=== PATIENT | male | born 1945 | race Caucasian/White ===

== ENCOUNTER 2018-04-26 11:42 | Emergency (ER) | payer BC, MEDICARE, OTHER ==
[2018-04-26] MEDS ORDERED: CLONIDINE HCL 0.2 MG TABLET PO ONE (12:07)
--- NOTE | 2018-04-26 12:09 | ER Document Report ---
ED Medical Screen (RME) - General Chief Complaint: Blood Pressure Problem Stated Complaint: BLOOD PRESSURE ISSUE Time Seen by Provider: 04/26/18 12:07 Mode of Arrival: Ambulatory Information source: Patient TRAVEL OUTSIDE OF THE [place] IN LAST 30 DAYS: No - HPI Patient complains to provider of: elevated BP Onset: Just prior to arrival - pt has been running elevated BP's for several days. Went to and sent here for evaluation of same - Related Data Allergies/Adverse Reactions: No Known Allergies Allergy (Verified 04/26/18 11:44) Past Medical History - Social History Chew tobacco use (# tins/day): No Frequency of alcohol use: Social Drug Abuse: None Renal/ Medical History: Denies: Hx Peritoneal Dialysis Physical Exam - Vital signs Vitals: Temp Pulse Resp BP Pulse Ox 97.8 F 88 16 183/98 H 100 04/26/18 11:48 04/26/18 11:48 04/26/18 11:48 04/26/18 11:48 04/26/18 11:48 Course - Vital Signs Vital signs: Temp Pulse Resp BP Pulse Ox 97.8 F 88 16 183/98 H 100 04/26/18 11:48 04/26/18 11:48 04/26/18 11:48 04/26/18 11:48 04/26/18 11:48 Doctor's Discharge - Discharge Referrals: EMILY STEVENSON MD [Primary Care Provider] - Follow up as needed
[2018-04-26 12:38] LABS: AMORPHOUS SEDIMENT,URINE TRACE /HPF; APPEARANCE,URINE CLOUDY; BILIRUBIN,URINE NEGATIVE (NEGATIVE); COLOR,URINE YELLOW; GLUCOSE, URINE NEGATIVE (NEGATIVE); KETONES,URINE NEGATIVE (NEGATIVE); LEUKOCYTE ESTERASE,URINE NEGATIVE (NEGATIVE); NITRITE,URINE NEGATIVE (NEGATIVE); PROTEIN,URINE NEGATIVE (NEGATIVE); UROBILINOGEN,URINE NEGATIVE mg/dL (<2.0)
[2018-04-26 12:46] LABS: ABSOLUTE EOSINOPHILS # (AUTO) 0.1 10^3/uL (0.0-0.6); ABSOLUTE MONOCYTES (AUTO) 0.4 10^3/uL (0.1-1.4); BASOPHILS % (AUTO) 0.4 % (0-2); EOSINOPHILS % (AUTO) 2.7 % (0-6); HEMATOCRIT 47.9 % (37.9-51.0); HEMOGLOBIN 16.9 g/dL (13.5-17.0); LYMPHOCYTES % (AUTO) 27.6 % (13-45); MEAN CORPUSCULAR HEMOGLOBIN 33.3 pg (27.0-33.4); MEAN CORPUSCULAR HGB CONC 35.3 g/dL (32.0-36.0); MEAN CORPUSCULAR VOLUME 94 fl (80-97); MONOCYTES % (AUTO) 11.1 % (3-13); PLATELET COUNT 140 10^3/uL (150-450); RED BLOOD COUNT 5.08 10^6/uL (4.35-5.55); SEGMENTED NEUTROPHILS % (AUTO) 58.2 % (42-78); TOTAL CELLS COUNTED % (AUTO) 100 %; WHITE BLOOD COUNT 3.5 10^3/uL (4.0-10.5)
--- NOTE | 2018-04-26 13:00 | ER Document Report ---
ED General - General Chief Complaint: Blood Pressure Problem Stated Complaint: BLOOD PRESSURE ISSUE Time Seen by Provider: 04/26/18 12:07 Mode of Arrival: Ambulatory TRAVEL OUTSIDE OF THE [place] IN LAST 30 DAYS: No - HPI Notes: Patient is a 73-year-old male with a history of arthritis and hypothyroidism who presents to the emergency department complaining of elevated blood pressure readings when at home today. Patient states that he does have a six-month appointment with his doctor this past week and was told that his blood pressure was in the 150s systolic at that time and to keep an eye on it. Patient states that he had one episode where he stood up and felt mildly lightheaded so he took his blood pressure and noticed his systolic blood pressure was in the 180s. Patient states that since then he has been asymptomatic and did go to an urgent care who referred him to the emergency department because of the elevated blood pressure. Patient states that he has otherwise been eating and drinking without any difficulty. He is urinating normally and having normal bowel movements. He has not noticed any acute changes in his vision or mentation. Patient does admit to smoking cigars and taking NSAIDs. Patient states that he has gained 15 pounds in the last year or so. Patient states that his labs were "all good" at his last visit this past week. Denies any headache, fever, neck pain, changes in vision/speech/mentation/hearing, URI, sore throat, chest pain, palpitations, syncope, cough, shortness of breath, wheeze, dyspnea, abdominal pain, nausea/vomiting/diarrhea, urinary retention, dysuria, hematuria, loss of control of bowel or bladder, numbness/tingling, saddle anesthesia, muscle paralysis/weakness, or rash. - Related Data Allergies/Adverse Reactions: No Known Allergies Allergy (Verified 04/26/18 11:44) Past Medical History - General Information source: Patient - Social History Smoking Status: Current Some Day Smoker Chew tobacco use (# tins/day): No Frequency of alcohol use: Social Drug Abuse: None Family History: Reviewed & Not Pertinent Patient has suicidal ideation: No Patient has homicidal ideation: No Renal/ Medical History: Denies: Hx Peritoneal Dialysis Musculoskeletal Medical History: Reports Hx Arthritis Past Surgical History: Reports: Hx Orthopedic Surgery - L foot Review of Systems - Review of Systems -: Yes All other systems reviewed and negative Physical Exam - Vital signs Vitals: Temp Pulse Resp BP Pulse Ox 97.8 F 88 16 183/98 H 100 04/26/18 11:48 04/26/18 11:48 04/26/18 11:48 04/26/18 11:48 04/26/18 11:48 - Notes Notes: PHYSICAL EXAMINATION: GENERAL: Well-appearing, well-nourished and in no acute distress. A&Ox4. answers questions appropriately. HEAD: Atraumatic, normocephalic. EYES: Pupils equal round and reactive to light, extraocular movements intact, sclera anicteric, conjunctiva are normal. ENT: Nares patent and without discharge. oropharynx clear without exudates. No tonsilar hypertrophy or erythema. Moist mucous membranes. NECK: Normal range of motion, supple without lymphadenopathy LUNGS: Breath sounds clear to auscultation bilaterally and equal. No wheezes rales or rhonchi. HEART: Regular rate and rhythm without murmurs, rubs, gallops. ABDOMEN: Soft, nontender, nondistended abdomen. No guarding, no rebound. No masses appreciated. Normal bowel sounds present. No CVA tenderness bilaterally. Musculoskeletal: FROM to passive/active. Strength 5+/5. No asymmetry to LE's. Extremities: No cyanosis, clubbing, or edema b/l. Peripheral pulses 2+. Capillary refill less than 3 seconds. NEUROLOGICAL: Normal speech, normal gait. Cranial nerves grossly intact. NIH 0. GCS 15. PSYCH: Normal mood, normal affect. SKIN: Warm, Dry, normal turgor, no rashes or lesions noted. Course - Re-evaluation Re-evalutation: 04/26/18 14:26 Patient is an afebrile, well-hydrated 73-year-old male who presents to the ED with asymptomatic hypertension. Vitals are acceptable without any significant tachycardia, tachypnea, or hypoxia. PE is otherwise unremarkable. Patient is nontoxic-appearing and is tolerating p.o. without any difficulties. Patient has been asymptomatic throughout his stay. CBC, CMP, EKG, chest x-ray are all unremarkable for any acute pathology. Patient does not have any headache, and urea, vision changes, chest pain, dyspnea, or shortness of breath. Patient's presentation and symptomatology creates low suspicion for ACS, PE, pneumothorax, pericarditis, dissection, respiratory compromise, severe dehydration, sepsis, meningitis, or other systemic emergent condition at this time. Patient is aware that his condition can change from initial presentation and he needs to monitor symptoms closely and seek medical attention for any acute changes. I will send him home with a low-dose lisinopril as patient is requesting to be placed on blood pressure medication at this time. He has had other high readings at his family doctor's office over the last week+. Recommend conservative measures for symptoms. Recheck with your PCM in 2-3 days. Consider consult with Cardiology. Return to the ED with any worsening/concerning symptoms otherwise as reviewed in discharge. Patient is in agreement. - Vital Signs Vital signs: Temp Pulse Resp BP Pulse Ox 97.8 F 88 16 167/102 H 95 04/26/18 11:48 04/26/18 11:48 04/26/18 11:48 04/26/18 12:53 04/26/18 12:53 - Laboratory Result Diagrams: 04/26/18 12:19 04/26/18 12:19 Laboratory results interpreted by me: 04/26/18 04/26/18 04/26/18 12:19 12:19 12:19 WBC 3.5 L Plt Count 140 L Carbon Dioxide 33 H BUN 21 H AST 62 H ALT 94 H Urine Ascorbic Acid 20 H Discharge - Discharge Clinical Impression: Elevated blood pressure reading Condition: Stable Disposition: HOME, SELF-CARE Additional Instructions: Maintain adequate fluid and food intake Take home medications as directed Low sodium/fat diet Exercise regularly Avoid smoking Monitor blood pressure daily and keep a log Monitor symptoms for any acute changes Recheck with your PCM in 2-3 days Consider a follow-up with cardiology Return to the ED with any worsening symptoms and/or development of fever, headache, chest pain, palpitations, syncope, shortness of breath, trouble breathing, abdominal pain, n/v/d, blood in stool/urine, loss of control of bowel/bladder, urinary retention, muscle weakness/paralysis, numbness/tingling, or other worsening symptoms that are concerning to you. Prescriptions: Lisinopril [Prinivil 10 mg Tablet] 10 mg PO DAILY #7 tablet Forms: Elevated Blood Pressure, Smoking Cessation Education Referrals: JUAN JOSE ALANIZ MD [Primary Care Provider] - Follow up as needed
[2018-04-26 13:02] LABS: ALANINE AMINOTRANSFERASE 94 U/L (21-72); ALBUMIN 4.5 g/dL (3.5-5.0); ALKALINE PHOSPHATASE 91 U/L (38-126); ANION GAP 6 (5-19); ASPARTATE AMINO TRANSFERASE 62 U/L (17-59); BILIRUBIN,DIRECT 0.2 mg/dL (0.0-0.4); BILIRUBIN,TOTAL 0.9 mg/dL (0.2-1.3); BLOOD UREA NITROGEN 21 mg/dL (7-20); CALCIUM 9.5 mg/dL (8.4-10.2); CARBON DIOXIDE 33 mmol/L (22-30); CHLORIDE 101 mmol/L (98-107); GLUCOSE 106 mg/dL (75-110); POTASSIUM 4.5 mmol/L (3.6-5.0); SODIUM 139.5 mmol/L (137-145); TOTAL PROTEIN 7.2 g/dL (6.3-8.2)
--- NOTE | 2018-04-26 13:45 | RADIOLOGY REPORT (SQ) ---
EXAM DESCRIPTION: CHEST SINGLE VIEW COMPLETED DATE/TIME: 04/26/2018 1:33 pm REASON FOR STUDY: near syncope COMPARISON: None. EXAM PARAMETERS: NUMBER OF VIEWS: One view. TECHNIQUE: Single frontal radiographic view of the chest acquired. RADIATION DOSE: NA LIMITATIONS: None. FINDINGS: LUNGS AND PLEURA: No opacities, masses or pneumothorax. No pleural effusion. MEDIASTINUM AND HILAR STRUCTURES: No masses. Contour normal. HEART AND VASCULAR STRUCTURES: Heart normal in size. Normal vasculature. BONES: No acute findings. HARDWARE: None in the chest. OTHER: No other significant finding. IMPRESSION: NO ACUTE RADIOGRAPHIC FINDING IN THE CHEST. TECHNICAL DOCUMENTATION: JOB ID: [id number] [employer] All Rights Reserved Reading location - IP/workstation name: [email or web address]
[2018-04-26 14:35] VITALS: BP 144/94
--- NOTE | 2018-04-26 16:48 | EKG REPORT ---
SEVERITY:- OTHERWISE NORMAL ECG - SINUS RHYTHM BORDERLINE LEFT AXIS DEVIATION : Confirmed by: Rufus Babcock MD 26-Apr-2018 16:48:10
== END 2018-04-26 14:42 | disposition home or self-care (01) ==
LOC: ER 11:42
DX: R03.0 Elevated blood-pressure reading, without diagnosis of hypertension (principal); R42 Dizziness and giddiness; F17.290 Nicotine dependence, other tobacco product, uncomplicated; M19.90 Unspecified osteoarthritis, unspecified site; Z79.1 Long term (current) use of non-steroidal anti-inflammatories (NSAID)
CPT/HCPCS: 93005; 99284; 36415; 85025; 80053; 81001; 71045; 93010; A9270

== ENCOUNTER 2019-05-03 05:33 | Day surgery (SDC) | payer MEDICARE, OTHER ==
[~2019-05-03 05:33] MED LIST: BUPIVACAINE INJ/PF LIPOSOME/PF 266 MG/20 ML SDV INJ PRN; CEFAZOLIN INJ 1 GM VIAL IV PRN; CEFAZOLIN INJ 1 GM VIAL ONE; IBUPROFEN 800 MG in NORMAL SALINE 250 ML IV PRN; LACTATED RINGERS 1000 ML IV PRN; OXYCODONE HCL SR 10 MG TABLET PO ONE; OXYCODONE HCL SR 10 MG TABLET PO PRN; PANTOPRAZOLE SODIUM 20 MG TABLET.DR PO ONE; PANTOPRAZOLE SODIUM 20 MG TABLET.DR PO PRN; VANCOMYCIN HCL 1,000 MG in DEXTROSE 5%-WATER 250 ML IV PRN
[2019-05-03] MEDS ORDERED: MIDAZOLAM 2 MG/2 ML INJ ONE (06:23)
[2019-05-03] MEDS ORDERED: FENTANYL CITRATE INJ/PF 100 MCG/2 ML AMPUL ONE (06:23)
[2019-05-03] MEDS ORDERED: DEXAMETHASONE SOD PHOSPHATE INJ 4 MG/1 ML VIAL ONE (06:24)
[2019-05-03] MEDS ORDERED: PROPOFOL INJ 200 MG/20 ML VIAL IV ONE ×2 (06:24→09:18)
[2019-05-03] MEDS ORDERED: ONDANSETRON HCL INJ/PF 4 MG/2 ML SDV ONE (06:24)
[2019-05-03] MEDS ORDERED: LIDOCAINE 0.5% INJ-PF (5 MG/ML) 50 ML SDV ONE (06:27)
[2019-05-03] MEDS ORDERED: TRANEXAMIC ACID INJ/PF 1,000 MG/10 ML SDV ONE ×2 (07:02→09:33)
[2019-05-03] MEDS ORDERED: BUPIVACAINE INJ/PF LIPOSOME/PF 266 MG/20 ML SDV ONE (07:11)
[2019-05-03] MEDS ORDERED: ONDANSETRON HCL INJ/PF 4 MG/2 ML SDV IV PRN ×2 (08:03→08:40)
[2019-05-03] MEDS ORDERED: MORPHINE SULFATE 10 MG/ML INJ IV PRN (08:03)
[2019-05-03] MEDS ORDERED: DIPHENHYDRAMINE HCL 50 MG/ML VIAL IV PRN ×2 (08:03→08:40)
[2019-05-03] MEDS ORDERED: PROMETHAZINE HCL INJ 25 MG/1 ML VIAL IV PRN ×2 (08:03)
[2019-05-03] MEDS ORDERED: FENTANYL CITRATE INJ/PF 100 MCG/2 ML AMPUL IV PRN ×3 (08:03)
[2019-05-03] MEDS ORDERED: MEPERIDINE HCL/PF INJ 25 MG/1 ML DISP.SYRIN IV PRN (08:03)
[2019-05-03] MEDS ORDERED: BUPIVACAINE INJ/PF LIPOSOME/PF 266 MG/20 ML SDV INJ ONE (08:10)
--- NOTE | 2019-05-03 08:39 | Operative Report ---
Operative Report DATE OF SURGERY: 05/03/19 PREOPERATIVE DIAGNOSIS: Left knee arthritis OPERATION: Left knee arthroplasty SURGEON: OLAMIDE BLAKE ANESTHESIA: Spinal TISSUE REMOVED OR ALTERED: Bone to pathology ESTIMATED BLOOD LOSS: 75 PROCEDURE: Implants used: Femur: Cindy triathlon size 7 CR cemented femur Tibia: 6 tibia Tibial liner: 11 mm CS insert Patella: 40 mm oval patella Procedure with the patient supine on the operating table the left the limb is prepped and draped in a sterile fashion. The limb was elevated for exsanguination and the tourniquet inflated to 280 torr. A standard midline median parapatellar approach the knee is taken. Access is gained to the femoral canal through the intercondylar notch. Intramedullary alignment instrumentation used to resect 10 mm of distal femur in 5 of valgus. Sizing guide indicated a size 7 femur. Appropriate cutting jig is then used to fashion anterior posterior and chamfer cuts. A trial reduction femurs performed and this is judged to be adequate. Attention was next turned to the tibia. Using an extra medullary alignment system 9 millimeters was resected off the lateral tibial plateau. This is sized to a size next tibia. A trial reduction was now performed with a Alex femur and a next tibia using a 9 millimeters spacer. It is full extension and central patellofemoral tracking. The articular surface the patella was next resected using an oscillating saw. All trial implants were removed. Polymethylmethacrylate is mixed and used to cement the above implants in place. On adequate curing the cement excess cement was removed the tourniquet was deflated hemostasis obtained the wound is then closed in layers using interrupted Vicryl followed by mary. A sterile compressive dressing was applied and the patient returned to recovery room in satisfactory condition.
[2019-05-03] MEDS ORDERED: RINGERS SOLUTION,LACTATED 1,000 ML IV PRN (08:40)
[2019-05-03] MEDS ORDERED: MAG HYDROX/AL HYDROX/SIMETH SUSP 30 ML UDCUP PO PRN (08:40)
[2019-05-03] MEDS ORDERED: OXYCODONE HCL IR 5 MG TABLET PO PRN (08:40)
[2019-05-03] MEDS ORDERED: ACETAMINOPHEN 325 MG TABLET PO PRN (08:40)
[2019-05-03] MEDS ORDERED: ZOLPIDEM TARTRATE 5 MG TABLET PO PRN (08:40)
--- NOTE | 2019-05-03 09:55 | RADIOLOGY REPORT (SQ) ---
EXAM DESCRIPTION: KNEE LEFT 2 VIEWS COMPLETED DATE/TIME: 05/03/2019 9:39 am REASON FOR STUDY: Post OP -Long Cassette in PACU M17.12 UNILATERAL PRIMARY OSTEOARTHRITIS, LEFT KNE E D50.0 IRON DEFICIENCY ANEMIA SECONDARY TO BLOOD LOSS (CHRONI COMPARISON: None. NUMBER OF VIEWS: Two views. TECHNIQUE: AP and lateral views of the left knee were obtained. LIMITATIONS: None. FINDINGS: MINERALIZATION: Normal. BONES: Status post TKA. The hardware is in anatomic alignment. There is no periprosthetic fracture. The intra-articular and subcutaneous emphysema are expected in the immediate postoperative period. JOINT: As above. SOFT TISSUES: As above. OTHER: Surgical mary anterior to the joint. IMPRESSION: Uncomplicated TKA hardware with expected immediate postoperative findings. TECHNICAL DOCUMENTATION: JOB ID: [id number] [employer]- All Rights Reserved Reading location - IP/workstation name: [email or web address]
[2019-05-03] MEDS ORDERED: LEVOTHYROXINE SODIUM 0.075 MG TABLET PO SCH (10:00)
[2019-05-03] MEDS ORDERED: TRANEXAMIC ACID INJ/PF 1,000 MG/10 ML SDV IV ONE (10:00)
[2019-05-03] MEDS: SENNOSIDES/DOCUSATE 8.6-50 MG 1 EACH TABLET PO SCH ×2 (10:47→18:05)
[2019-05-03] MEDS: LISINOPRIL 10 MG TABLET PO SCH (10:47)
[2019-05-03] MEDS: PRENATAL VITAMIN W DHA CAPSULE PO SCH (10:47)
[2019-05-03] MEDS: ONDANSETRON 4 MG TAB.RAPDIS PO PRN ×2 (15:31→21:31)
[2019-05-03] MEDS: OXYCODONE HCL SR 10 MG TABLET PO SCH (18:05)
[2019-05-03] MEDS: IBUPROFEN 800 MG in NORMAL SALINE 250 ML IV SCH (18:06)
[2019-05-03] MEDS ORDERED: VANCOMYCIN HCL 1,000 MG in DEXTROSE 5%-WATER 250 ML IV ONE (20:40)
[2019-05-04] MEDS: IBUPROFEN 800 MG in NORMAL SALINE 250 ML IV SCH ×2 (04:09→09:46)
[2019-05-04] MEDS: OXYCODONE HCL SR 10 MG TABLET PO SCH (05:18)
[2019-05-04 05:30] LABS: HEMOGLOBIN 14.3 g/dL (13.5-17.0); MEAN CORPUSCULAR HEMOGLOBIN 32.8 pg (27.0-33.4); MEAN CORPUSCULAR HGB CONC 34.8 g/dL (32.0-36.0); MEAN CORPUSCULAR VOLUME 94 fl (80-97); PLATELET COUNT 122 10^3/uL (150-450); RED BLOOD COUNT 4.36 10^6/uL (4.35-5.55); RED CELL DISTRIBUTION WIDTH 12.1 % (11.5-14.0); WHITE BLOOD COUNT 9.9 10^3/uL (4.0-10.5)
[2019-05-04] MEDS ORDERED: LEVOTHYROXINE SODIUM 0.075 MG TABLET PO SCH (06:00)
[2019-05-04] MEDS ORDERED: PANTOPRAZOLE SODIUM 40 MG TABLET.DR PO SCH (06:00)
[2019-05-04 06:09] LABS: ANION GAP 7 (5-19); BLOOD UREA NITROGEN 20 mg/dL (7-20); CARBON DIOXIDE 30 mmol/L (22-30); CHLORIDE 101 mmol/L (98-107); GLUCOSE 105 mg/dL (75-110); POTASSIUM 4.9 mmol/L (3.6-5.0)
--- NOTE | 2019-05-04 06:58 | PDOC DISCHARGE SUMMARY ---
Impression - Admit/DC Date/PCP Admission Date/Primary Care Provider: JUAN JOSE ALANIZ MD Discharge Date: 05/04/19 - Additional Information Resuscitation Status: Full Code Discharge Diet: Regular Discharge Activity: Balance Activity w/Rest, No tub bath Referrals: OLAMIDE BLAKE MD [ACTIVE STAFF] - 05/18/19 9:15 am Home Medications: Ascorbic Acid [Vitamin C 500 mg Tablet] 500 mg PO DAILY 04/27/19 Celecoxib [Celebrex] 200 mg PO BID 04/27/19 Cholecalciferol (Vitamin D3) [Vitamin D3] 25 mcg PO DAILY 04/27/19 Folic Acid 1 mg PO DAILY 04/27/19 Levothyroxine Sodium [Synthroid 0.075 mg Tablet] 75 mcg PO DAILY 04/27/19 Lisinopril [Prinivil 10 mg Tablet] 20 mg PO DAILY 04/27/19 Methotrexate [Xatmep] 2.5 mg IM Q7D 04/27/19 Multivitamin [Multiple Vitamins] 1 tab PO DAILY 04/27/19 History of Present Illiness History of Present Illness: KALLIE LEE is a 74 year old male The patient is a 74-year-old white male with progressive left knee pain and functional disability second osteoarthritis. Patient is admitted for elective left knee arthroplasty. Hospital Course Hospital Course: Patient is admitted through the operating where he undergoes uncomplicated left knee arthroplasty. Is returned to the floor in satisfactory vision. He seen by physical therapy on the day of surgery and has a vagal vasal reaction which limits his participation with physical therapy. He has an uneventful night. The relying compressive dressing was removed on the first postoperative morning. Underlying OpSite is clean dry and intact. There is minimal pedal edema. Distal neurovascular examination is intact. Physical Exam Vital Signs: Temp Pulse Resp BP Pulse Ox 36.8 C 103 H 19 138/70 H 95 05/04/19 00:00 05/04/19 00:00 05/04/19 00:00 05/04/19 00:00 05/04/19 00:00 Intake & Output 05/02/19 05/03/19 05/04/19 06:59 06:59 06:59 Intake Total 0 2472 Output Total 1950 Balance 0 522 Weight 106.4 kg General appearance: PRESENT: no acute distress Head exam: PRESENT: normocephalic Respiratory exam: PRESENT: unlabored Cardiovascular exam: PRESENT: RRR Pulses: PRESENT: +1 pedal pulses bilateral Vascular exam: PRESENT: normal capillary refill GI/Abdominal exam: PRESENT: soft Rectal exam: PRESENT: deferred Musculoskeletal exam: PRESENT: other - Left lower extremity OpSite dressing clean dry and intact. Minimal pedal edema. Distal neurovascular examination is intact. Neurological exam: PRESENT: alert, awake, oriented to person, oriented to place, oriented to time, oriented to situation. ABSENT: motor sensory deficit Psychiatric exam: PRESENT: appropriate affect, normal mood. ABSENT: homicidal ideation, suicidal ideation Skin exam: PRESENT: dry, intact, warm. ABSENT: cyanosis, rash Results Laboratory Results: WBC 9.9 10^3/uL (4.0-10.5) 05/04/19 05:11 RBC 4.36 10^6/uL (4.35-5.55) 05/04/19 05:11 Hgb 14.3 g/dL (13.5-17.0) 05/04/19 05:11 Hct 41.0 % (37.9-51.0) 05/04/19 05:11 MCV 94 fl (80-97) 05/04/19 05:11 MCH 32.8 pg (27.0-33.4) 05/04/19 05:11 MCHC 34.8 g/dL (32.0-36.0) 05/04/19 05:11 RDW 12.1 % (11.5-14.0) 05/04/19 05:11 Plt Count 122 10^3/uL (150-450) L 05/04/19 05:11 Sodium 138.1 mmol/L (137-145) 05/04/19 05:11 Potassium 4.9 mmol/L (3.6-5.0) 05/04/19 05:11 Chloride 101 mmol/L (98-107) 05/04/19 05:11 Carbon Dioxide 30 mmol/L (22-30) 05/04/19 05:11 Anion Gap 7 (5-19) 05/04/19 05:11 BUN 20 mg/dL (7-20) 05/04/19 05:11 Creatinine 0.94 mg/dL (0.52-1.25) 05/04/19 05:11 Est GFR ( Amer) > 60 (>60) 05/04/19 05:11 Est GFR (MDRD) Non-Af > 60 (>60) 05/04/19 05:11 Glucose 105 mg/dL (75-110) 05/04/19 05:11 Calcium 9.0 mg/dL (8.4-10.2) 05/04/19 05:11 Impressions: Knee X-Ray 05/03/19 08:41 IMPRESSION: Uncomplicated TKA hardware with expected immediate postoperative findings. Plan Plan of Treatment: Patient to be discharged home on a weightbearing as tolerated basis. Social work to provide home health services and DME. Follow-up with Dr. Blake and [facility] for surgery in 2 weeks for staple removal. Stroke Is this a Stroke Patient?: No Stroke Pt being discharged on Anti-thrombolytic therapy?: Yes Acute Heart Failure - Is this a Heart Failure Patient?: No
[2019-05-04] MEDS: PRENATAL VITAMIN W DHA CAPSULE PO SCH (09:45)
[2019-05-04] MEDS: LISINOPRIL 10 MG TABLET PO SCH (09:45)
[2019-05-04] MEDS: SENNOSIDES/DOCUSATE 8.6-50 MG 1 EACH TABLET PO SCH (09:45)
[2019-05-04] MEDS ORDERED: ASPIRIN 81 MG TABLET, ENT COATED PO SCH (10:00)
[2019-05-04 11:06] VITALS: BP 138/70
== END 2019-05-04 11:30 | disposition home health service (06) ==
LOC: OROUT 05:33 → EDSTATUS 07:30 → 4W 10:08 → OROUT 05-04 11:30
PROVIDERS: ATTEND Orthopaedic Surgery
DX: M17.12 Unilateral primary osteoarthritis, left knee (principal); D50.0 Iron deficiency anemia secondary to blood loss (chronic); I10 Essential (primary) hypertension; E03.9 Hypothyroidism, unspecified; M06.9 Rheumatoid arthritis, unspecified; Z79.899 Other long term (current) drug therapy; F17.210 Nicotine dependence, cigarettes, uncomplicated; J45.909 Unspecified asthma, uncomplicated; E66.9 Obesity, unspecified
CPT/HCPCS: 36415; 85027; 80048; 88305 ×2; 88311; 73560; 94799; 97530 ×4; 97110; 97116; 97163; 97535 ×2; 97167; 01402; 27440; C1758; C1713 ×3; C1776 ×3; A9270 ×15; J2250; J0690; J1100; J3490 ×4; J2405; J7060; J7050 ×2; J7120; J2704; J3370; C9290; J1741 ×2; J3010; S0119